=== PATIENT | male | born 2000 | race Caucasian/White ===

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

== ENCOUNTER 2023-12-15 02:47 | Emergency (ER) | payer BC, OTHER, SELFPAY ==
[2023-12-15 02:49] VITALS: BP 129/83; PULSE 65; RESP 12; TEMP 36.8; O2SAT 93; BMI 31.8
[2023-12-15 02:56] VITALS: BMI 31.8
[2023-12-15 03:15] VITALS: BP 113/73; BP 117/68; BP 121/86; PULSE 44; PULSE 56; PULSE 73
--- NOTE | 2023-12-15 03:15 | CT_ITS ---
EXAM: CT HEAD WITHOUT INTRAVENOUS CONTRAST CLINICAL INDICATION: syncope syncope TECHNIQUE: Multiple axial images were obtained of the head without intravenous contrast. This CT exam was performed using one or more of the following dose reduction techniques: automated exposure control, adjustment of the mA and/or kV according to patient size, and/or use of iterative reconstruction technique. RADIATION DOSE: CTDIvol = 44.99 mGy, DLP = 829.85 mGy-cm COMPARISON: CT scan brain 02/26/2015. FINDINGS: BRAIN AND EXTRA-AXIAL SPACES: Unremarkable. No intra- or extra-axial hemorrhage. No evidence of acute infarct. No intracranial mass or mass effect. There is preservation of the jensen/white matter interface. Posterior fossa structures are unremarkable. Ventricles are appropriate for age. No hydrocephalus. Basal cisterns are patent. BONES/JOINTS: Unremarkable. No discrete lytic or blastic abnormalities. SINUSES: There is a small polyp or retention cyst in the left maxillary sinus. There is no evidence for acute sinusitis. MASTOID AIR CELLS: Unremarkable. Clear. ORBITS: Visualized globes, extraocular muscles, optic nerves and retrobulbar fat appear unremarkable. CT/Brain/Head without Contrast IMPRESSION: No demonstrated acute intracranial process. Electronically Signed: Macho Burch MD at 4:03 EST Reading Location ID and State: [facility] / [place] , Service support ,
[2023-12-15 03:30] LABS: Absolute Lymphocyte Count 1.76 X10^3/uL (0.83-4.51); Absolute Neutrophil Count 2.9 X10^3/uL (2.0-7.7); Basophil# 0.02 X10^3/uL; Basophil% 0.4 % (0-1); Eosinophil# 0.14 X10^3/uL; Eosinophils% 2.7 % (0-5); Hematocrit 44.5 % (40-54); Hemoglobin 15.3 g/dL (13.0-16.5); Lymphocyte # 1.76 X10^3/ul (0.83-4.51); Mean Corp Hgb Conc 34.4 g/dL (32-36); Mean Corpuscular Hgb 29.7 pg (27.0-32.0); Mean Corpuscular Volume 86.2 fL (80-94); Mean Platelet Vol. 10.3 fl (6.2-12.0); Monocyte# 0.31 X10^3/uL; NRBC Flagged by Analyzer 0 % (0-5); Neutrophil # 2.94 X10^3/uL (2.7-7.7); Neutrophil % 56.7 % (47-70); Platelet Count 179 K/mm3 (150-450); RBC Distribution Width CV 12.6 % (11.6-14.6); RBC Distribution Width SD 39.8 fl (35.1-43.9); Red Blood Count 5.16 M/mm3 (4.6-6.2); White Blood Count 5.2 K/mm3 (4.4-11.0)
[2023-12-15 03:43] LABS: Bedside Glucose 98 mg/dL (74-106)
[2023-12-15 03:55] LABS: Anion Gap 5 (5-15); BUN 15 mg/dL (7-18); BUN/Creat Ratio 14.7 RATIO (10-20); Calcium,Total 9.2 mg/dL (8.5-10.1); Chloride 108 mmol/L (98-107); Creatinine, Serum 1.02 mg/dL (0.70-1.30); EST Glomerular Filtration Rate 96 mL/min (>60); Est Glom Filt Rate - Afr Amer 116 mL/min (>60); Estimated Creatinine Clearance 129.84 ml/min; Glucose 104 mg/dL (74-106); Potassium 3.9 mmol/L (3.5-5.1); Sodium Level 140 mmol/L (136-145)
--- NOTE | 2023-12-15 04:27 | EX.ED.DYSGE1 ---
HPI History of Present Illness Chief Complaint: Neuro S/Sx Informant: patient and spouse/S.O. Narrative Narrative: Patient is a 23-year-old male with past medical history of remote seizure disorder but no reported seizure since age 13 and no need for medication as well as anxiety and depression. He states he was at work this evening when he began to feel lightheaded/dizzy and then went over and rested on table and then he states that supposedly he slumped over . He states people at work said they were talking to him but he was not responding and then when he awoke he knew who he was and where he was at but did not remember the event. With his remote history of seizure disorder there was concern he had another seizure and therefore he was sent in for evaluation. Patient denies any illicit drug use or new medications [facility] Medical History (Updated 12/15/23 @ 05:[address] Alan Montes, DO) Anxiety Depression MRSA (methicillin resistant Staphylococcus aureus) Seizures Home Medications NK 12/15/23 [History Last Taken Unknown] Allergy/AdvReac Type Severity Reaction Status Date / Time No Known Allergies Allergy Verified 12/15/23 02:53 Surgical History [place] teeth extracted Social History Smoking Status: Current every day smoker tobacco type: cigarettes and e-cigarettes ROS ROS ED Constitutional Constitutional ED: Denies chills or fever(s) ENT ENT ED: Denies sore throat Cardiovascular Cardiovascular: Reports racing heartbeat; Denies chest pain or palpitations Respiratory/Chest Respiratory/Chest: Denies cough or dyspnea Gastrointestinal Gastrointestinal: Denies abdominal pain, diarrhea, nausea or vomiting Genitourinary Genitourinary ED: Denies dysuria Musculoskeletal Musculoskeletal: Denies myalgias Integumentary Denies rash Neurologic Neurologic: Reports other Details: Positive dizziness ; Denies headache(s) Hematologic/Lymphatic Hematologic/Lymphatic: Denies easy bleeding or easy bruising EXAM Physical Exam Const Vital Signs: 12/15/23 02:49 12/15/23 03:15 12/15/23 04:37 Temperature 98.3 F 97.5 F L Temperature Source Temporal Pulse Rate 65 62 Pulse Rate [Lying] 44 L Pulse Rate [Sitting (for 1 minute prior to obtaining)] 56 L Pulse Rate [Standing (for 1 minute prior to obtaining)] 73 Respiratory Rate 12 15 Blood Pressure 129/83 H 134/95 H Blood Pressure [Lying] 117/68 Blood Pressure [Sitting (for 1 minute prior to obtaining)] 121/86 H Blood Pressure [Standing (for 1 minute prior to obtaining)] 113/73 Blood Pressure Mean 98 108 Blood Pressure Mean [Lying] 84 Blood Pressure Mean [Sitting (for 1 minute prior to obtaining)] 97 Blood Pressure Mean [Standing (for 1 minute prior to obtaining)] 86 Pulse Ox 93 99 Oxygen Delivery Method Room Air Positive well nourished and well developed General Appearance ED: well developed; Negative for pallor HEENT Reports moist mucous membranes HEENT Narrative: No signs of infection noted in the posterior pharynx No tongue or cheek biting noted Eyes PERRL and EOMs intact bilaterally General Eye ED: Negative for scleral icterus Neck supple Neck Narrative: No nuchal rigidity or meningeal signs Resp normal respiratory effort and clear to auscultation bilaterally Cardio regular rhythm Rate: bradycardia and other Other Details: Bradycardic rate with regular rhythm Radial and carotid pulses are equal and symmetric GI normal to inspection, nondistended, normoactive bowel sounds, non-tender, non-distended and no masses Auscultation: normoactive bowel sounds Palpation: soft Extremity normal to inspection Neuro oriented x3, CN's II-XII intact bilaterally and no sensory deficits noted Neuro Narrative: Cranial nerves II through XII are grossly intact there are no focal neurologic deficits No pronator drift no dysmetria no truncal ataxia No nystagmus noted Sensorium / Orientation: alert Motor Exam: strength 5/5 throughout Psych mental status grossly normal Skin no rashes or lesions noted General Skin Exam: Negative for jaundice or pallor MDM MDM MDM Narrative Medical decision making narrative: Patient arrived to the ER with stable vitals as well as a normal neurologic exam. History is more concerning with syncope than seizure as there is no tongue or cheek biting no loss of bowel or bladder control and the patient had no reported postictal phase. However as he does have a past medical history of seizure disorder and is not on medications basic blood work was obtained to check for potential acute blood loss anemia versus acute kidney injury versus electrolyte abnormality as a cause of his symptoms. Labs revealed no clinically significant findings. A CT of the brain was also obtained to rule out underlying brain bleed or mass. This was negative as well. The patient had no bouts of seizure disorder or syncope while in the ER and had negative orthostatic vital signs and therefore with overall negative workup and no return of symptoms he is otherwise safe for discharge. History & Record Review Discussion w/independent historian: Patient and Significant other Lab Data Attestation: I reviewed the patient's lab results. Labs: Laboratory Results - last 24 hr 12/15/23 12/15/23 03:20 03:24 WBC 5.2 RBC 5.16 Hgb 15.3 Hct 44.5 MCV 86.2 MCH 29.7 MCHC 34.4 RDW Std Deviation 39.8 RDW Coeff of [place] 12.6 Plt Count 179 MPV 10.3 Immature Gran % (Auto) 0.200 Neut % (Auto) 56.7 Lymph % (Auto) 34.0 [place] % (Auto) 6.0 Eos % (Auto) 2.7 Baso % (Auto) 0.4 Absolute Neuts (auto) 2.9 Absolute Lymphs (auto) 1.76 Nucleated RBC % 0 Sodium 140 Potassium 3.9 Chloride 108 H Carbon Dioxide 27.0 Anion Gap 5 BUN 15 Creatinine 1.02 Estim Creat Clear Calc 129.84 Est GFR (MDRD) Af Amer 116 Est GFR (MDRD) Non-Af 96 BUN/Creatinine Ratio 14.7 Glucose 104 Lactic Acid 1.0 Calcium 9.2 Magnesium 2.0 POC Glucose 98 Radiography Diagnostic Testing: Clinical Impression(s) from Imaging Studies Brain CT 12/15/23 03:15 IMPRESSION: No demonstrated acute intracranial process. Electronically Signed: Macho Burch MD at 4:03 EST Reading Location ID and State: [facility] / [place] , Service support , Discharge Plan Triage Chief Complaint: Neuro S/Sx Other Complaint: Seizure ED Provider: Alan Montes Dx/Rx/DC Orders Clinical Impression: Syncope, Anxiety and depression, History of seizure disorder Instructions: Causes of Syncope, ED Fainting, Uncertain Cause Prescriptions: No Action NK Stand Alone Forms: ED Work / School Excuse Primary Care Provider: Joon Zafar Referrals: Joon Zafar DO [Primary Care Provider] - Activity Restrictions/Additional Instructions: Your workup today is more consistent with syncope/passing out and it is acute seizure. Your head CT revealed no signs of brain tumor or mass and your labs revealed no clinically significant abnormalities. Keep yourself well-hydrated and follow-up with your family doctor for repeat evaluation Disposition Disposition: Home, Self Care Discharge Date/Time: 12/15/23 04:38
[2023-12-15 04:37] VITALS: BP 134/95; PULSE 62; RESP 15; TEMP 36.4; O2SAT 99
== END 2023-12-15 04:38 | disposition home or self-care (01) ==
PROVIDERS: Emergency Provider Emergency Medicine; PCP Student in an Organized Health Care Education/Training Program; Visit Provider Emergency Medicine
DX: R55 Syncope and collapse (principal); F32.A Depression, unspecified; F41.9 Anxiety disorder, unspecified; F17.210 Nicotine dependence, cigarettes, uncomplicated; F17.290 Nicotine dependence, other tobacco product, uncomplicated; Z86.69 Personal history of other diseases of the nervous system and sense organs
CPT/HCPCS: 70450; 80048; 82962; 83605; 83735; 85025; 99284; A4216